=== PATIENT | male | born 1955 | race Caucasian/White ===

== ENCOUNTER 2022-10-21 13:12 | Outpatient (CLI) | payer OTHER, SELFPAY | END 2022-10-21 13:13 | disposition home or self-care (01) | LOC: ANHBWCAUD 13:14 | PROVIDERS: PCP Surgery; Visit Provider Otolaryngology | DX: H90.3 Sensorineural hearing loss, bilateral (principal) | CPT/HCPCS: 92557; 92567 ==

== ENCOUNTER 2023-10-06 12:30 | Outpatient (RCR) | payer OTHER, SELFPAY ==
--- NOTE | 2023-08-18 09:12 | OPREHPOC ---
Outpatient Therapy Plan of Care This is a Multidisciplinary Plan of Care that may contain components documented by all disciplines (PT, OT, and ST.) PT Problem 1 PT Problem #1 Knowledge Deficit PT Goal 1 Goal *indep with HEP * education for lymphedema management Target Visit 10 PT Problem 2 PT Problem #2 Impaired Lymphatic System PT Goal 1 Goal improve lymphatic system, to decrease size of legs and improve mobility skills: circumferential measurement of leg to 68 CM from bottom of foot: 1* R 690 cm 2* L 720 cm no redness over leg 3* R 4* L no firmness of tissues over leg with palpation 5* R 6* L 7* increase strength of both legs, with to able to perform 20 reps of mat exercises. 8* recommendation of compression garment for pt to obtain
--- NOTE | 2023-08-18 09:12 | PTOPEVAL1 ---
Assessment and note entered by Lucy Miguel, PT, CLT Evaluation Information Assessment Status Evaluation Diagnosis lymphedema of LE's Onset about one year Subjective Information chronic issues with leg swelling, L more swollen than the R; does not do any exercises for fitness; Activity level: ambulate with cane, does light home and self care tasks; live alone, sister near by; does drive and do grocery shopping; Reported Pain Level Pain Score 0: Self Report Additional Pain Score Comments no pain in legs; use cane for walking and sometimes R knee gives out Assessment PT Clinical Summary Saad has the diagnosis of bilateral LE lymphedema. He has had treatment in the past, using compression knee high socks. Ambulates with a cane due to knee pain, weakness. With the evaluation: he has tissue changes over R and L lower leg and dorsum of feet/ankles; with the circumferential measurements of his LE's, L is 63.5 cm larger than his R LE; current compression knee high socks do not fit correctly and bunch at his ankles, with indentations and wounds from them over ankles; decreased strength of R and L LE, with 2 minute walking test distance of 310' with cane. Skilled PT services are indicated for lymphedema treatment, LE strengthening and education for correct compression garment to obtain and use of garment and lymphedema management. Plan of Care Interventions Intermittent Compression,Manual Lymph Drainage, Neuro Re-education,Patient Education, Therapeutic Activities,Therapeutic Exercise,Self- Care/Home Management PT Services Indicated Yes Treatment Frequency and 2x/wk for total of 10 visits Duration These treatments will address the objective and functional deficits as defined above. The patient will be advanced safely and appropriately in order for the patient to progress towards his/her prior level of function. Additional exercises will be introduced and as well as a comprehensive home exercise program upon discharge, if needed, ?to ensure carryover of functional gains achieved in the clinic. This treatment plan has been reviewed and agreement upon by the patient.
--- NOTE | 2023-08-25 10:07 | PCPTNOTE ---
Addendum entered by Mirna Bernard, WELDING PROCESS ENGINEER 08/25/23 10:08: Pt cancelled 11:00a appointment due to coming in earlier. Original Note: Patient cancelled scheduled appointment this date.
--- NOTE | 2023-09-08 13:01 | PCPTNOTE ---
Mr. Jeter requires R and L lower leg and foot/ankle compression to manage his chronic condition of lymphedema of both legs. His medical history includes cellulitis and wounds over lower legs, knee pain and decreased walking and mobility due to leg size and pain. His L LE is 63.5 cm larger than his R LE, and has tissue changes with dorsum of foot swelling, hyper pigmentation, hyperplasia, shiny, dry, pale skin. He is receiving comprehensive PT lymphedema treatment to reduce the size of his legs and improve the tissue integrity. And education for self management and care of lymphedema. He requires a velcro compression garment due to not having the ability to pull up a stocking on his legs. I measured and recommended for patient to use for compression: R and L lower leg Circaid Juxtafit essential lower leg garments: size large, length long R and L Solaris Ready Wrap Foot SL: size: medium, long length Lucy Miguel PT, [facility]; [facility] [phone]
--- NOTE | 2023-09-14 14:07 | PCPTNOTE ---
pt canceled his appt for 09-16, due to appt for steroid injection to his knee.
--- NOTE | 2023-09-23 15:22 | OPREHPOC ---
Outpatient Therapy Plan of Care This is a Multidisciplinary Plan of Care that may contain components documented by all disciplines (PT, OT, and ST.) PT Problem 1 PT Problem #1 Knowledge Deficit PT Goal 1 Goal *indep with HEP * education for lymphedema management Target Visit 10 Progress Met Comment progress met goals, continue to progress education PT Goal 2 Target Visit 15 PT Problem 2 PT Problem #2 Impaired Lymphatic System PT Goal 1 Goal improve lymphatic system, to decrease size of legs and improve mobility skills: circumferential measurement of leg to 68 CM from bottom of foot: 1* R 690 cm 2* L 720 cm no redness over leg 3* R 4* L no firmness of tissues over leg with palpation 5* R 6* L 7* increase strength of both legs, with to able to perform 20 reps of mat exercises. 8* recommendation of compression garment for pt to obtain Progress Partially Met Comment progress met goals 6,7,8 continue towards other goals PT Goal 2 Target Visit 15
--- NOTE | 2023-09-23 15:22 | PTOPPROG ---
Assessment and note entered by Lucy Miguel, PT Progress Information Assessment Status Progress Diagnosis lymphedema of LE's Onset about one year Subjective Information using the pump at home; doing leg exercises and walking as much as I can; doing the self massage; Assessment PT Clinical Summary Manuel has received 9 PT sessions. Compared to the initial evaluation: with the circumferential measurements: R LE decreased by .9 cm and R by 52 cm; The R leg had the velcro compression garment and R has not had a garment on it; improved skin integrity with only slight redness & edema over L ankle and foot: R lower leg is about the same, with redness throughout and fibrotic-thick tissue over lower leg. Education to pt for LE exercises, self manual lymph drainage, skin care and garments. He is working with his insurance for compression garment coverage. The goals were partially met. Continue PT treatment. Plan of Care Interventions Intermittent Compression,Manual Lymph Drainage, Neuro Re-education,Patient Education, Therapeutic Activities,Therapeutic Exercise,Self- Care/Home Management PT Services Indicated Yes Treatment Frequency and 1-2x/wk for 6 additional visits Duration These treatments will address the objective and functional deficits as defined above. The patient will be advanced safely and appropriately in order for the patient to progress towards his/her prior level of function. Additional exercises will be introduced and as well as a comprehensive home exercise program upon discharge, if needed, ?to ensure carryover of functional gains achieved in the clinic. This treatment plan has been reviewed and agreement upon by the patient.
--- NOTE | 2023-10-07 10:55 | PCPTNOTE ---
pt called on phone and discussed with him: He was told [facility] will take 2-3 weeks to get his compression garments, going to get insurance authorization for it. Plan to hold PT until he obtains his garments, for check of fit and education with them. He will call for appt when he has the garments. Instructed him to call if any questions prior to returning.
--- NOTE | 2023-11-11 14:59 | PCPTNOTE ---
called pt and talked with him. He has not yet received the compression garments, is awaiting insurance to approve and receive them.
--- NOTE | 2023-12-27 09:38 | PCPTNOTE ---
DISCHARGE PHYSICAL THERAPY Palma Cavanaugh DPM Saad has received a total of 12 PT sessions for LE lymphedema, from August 17 to October 05. He was then placed on hold due to awaiting to receive his compression garments for lower legs. Contact was made with him several times with phone calls, and he had not yet obtained the garments. He will be discharged at this time. The goals were not assessed.
== END 2023-11-16 23:59 | disposition home or self-care (01) ==
LOC: ANHPT 12:30
PROVIDERS: PCP Surgery; Visit Provider Podiatrist Foot & Ankle Surgery
DX: I89.0 Lymphedema, not elsewhere classified (principal)
CPT/HCPCS: 97016; 97110; 97140; 97161; 97530